=== PATIENT | male | born 1970 | race American Indian/Alaskan Native ===

== ENCOUNTER 2017-12-11 00:10 | Emergency (ER) | payer OTHER ==
[2017-12-11 00:34] VITALS: BP 142/80
--- NOTE | 2017-12-11 05:42 | Emergency Department Report ---
ED Lower Extremity HPI - General Chief Complaint: Extremity Injury, Lower Stated Complaint: RIGHT FOOT PAIN Time Seen by Provider: 12/11/17 05:37 Source: patient Mode of arrival: Ambulatory Limitations: No Limitations - History of Present Illness Initial Comments: This is a 47 y.o. male that presents with right great toe pain for 3 days. History of HTN & DM2. Patient newly diagnosed with gout last month and reports eating steak this past weekend and waking up with pain, swelling, and redness to right great toe. Reports pain as 10/10 on scale and constant. He can't tolerate sock or shoe rubbing against it. Pain is a throbbing and burning sensation. Denies recent injury, numbness/tingling, and deformity. MD Complaint: other (right great toe swollen and painful) -: days(s) (3 days) Injury: Toes: Right (1st digit) Type of Injury: unknown Place: home Severity: severe Severity scale (0 -10): 8 Improves With: nothing Worsens With: weight bearing, movement, palpation Context: other (history of gout) Associated Symptoms: swelling, able to partially bear weight, ambulatory. denies: snap/pop sensation, numbness, tingling, unable to bear weight Treatments Prior to Arrival: NSAIDS - Related Data Previous Rx's Medication Instructions Recorded Last Taken Type Cyclobenzaprine HCl [Flexeril 5 MG 5 mg PO TID #20 tab 04/15/16 Unknown Rx TAB] RX: Ibuprofen [Motrin 800 MG tab] 800 mg PO Q8HR PRN #30 tablet 04/15/16 Unknown Rx Prednisone [predniSONE 10 mg 10 mg PO .TAPER #1 tab.ds.pk 12/11/17 Unknown Rx (6-Day Pack, 21 Tabs)] RX: Indomethacin 50 mg PO Q8H PRN #20 capsule 12/11/17 Unknown Rx Allergies Allergy/AdvReac Type Severity Reaction Status Date / Time No Known Allergies Allergy Verified 12/11/17 01:18 ED Review of Systems ROS: Stated complaint: RIGHT FOOT PAIN Other details as noted in HPI Constitutional: denies: chills, fever Respiratory: denies: cough, shortness of breath, wheezing Cardiovascular: denies: chest pain, palpitations Gastrointestinal: denies: abdominal pain, nausea, diarrhea Musculoskeletal: joint swelling (right great toe), arthralgia (right great toe) . denies: back pain Skin: change in color (erythematous and swollen 1st digit). denies: rash, lesions, change in hair/nails Neurological: denies: headache, weakness, numbness, paresthesias Psychiatric: denies: anxiety, depression ED Past Medical Hx - Past Medical History Previous Medical History?: Yes Hx Hypertension: Yes Hx Diabetes: Yes (not on meds) Hx Arthritis: Yes (gout) - Surgical History Past Surgical History?: No - Social History Smoking Status: Never Smoker Substance Use Type: None - Medications Home Medications: Home Medications Medication Instructions Recorded Confirmed Last Taken Type Cyclobenzaprine HCl [Flexeril 5 MG 5 mg PO TID #20 tab 04/15/16 Unknown Rx TAB] RX: Ibuprofen [Motrin 800 MG tab] 800 mg PO Q8HR PRN #30 tablet 04/15/16 Unknown Rx Prednisone [predniSONE 10 mg 10 mg PO .TAPER #1 tab.ds.pk 12/11/17 Unknown Rx (6-Day Pack, 21 Tabs)] RX: Indomethacin 50 mg PO Q8H PRN #20 capsule 12/11/17 Unknown Rx ED Physical Exam - General Limitations: No Limitations General appearance: alert, in no apparent distress - Respiratory Respiratory exam: Present: normal lung sounds bilaterally. Absent: respiratory distress - Cardiovascular Cardiovascular Exam: Present: regular rate, normal rhythm, normal heart sounds. Absent: systolic murmur, diastolic murmur, rubs, gallop - GI/Abdominal GI/Abdominal exam: Present: soft, normal bowel sounds. Absent: organomegaly, mass - Extremities Exam Extremities exam: Present: normal inspection, normal capillary refill. Absent: pedal edema, calf tenderness - Expanded Lower Extremity Exam Right Hip exam: Present: normal inspection, full ROM Upper Leg exam: Present: normal inspection, full ROM Knee exam: Present: normal inspection, full ROM Lower Leg exam: Present: normal inspection, full ROM Ankle exam: Present: normal inspection, full ROM Foot/Toe exam: Present: tenderness (erythma, tender and swelling at distal MTP joint of 1st digit, shiny skin,), swelling, erythema. Absent: full ROM ( limited 2/2 pain), abrasion, laceration, ecchymosis, deformity, crepidus, dislocation, amputation, puncture wound, foreign body, calcaneal tenderness, tenderness at base of 5th metatarsal, nail avulsion, subungual hematoma Neuro vascular tendon exam: Present: no vascular compromise Gait: Positive: observed and limited by pain - Neurological Exam Neurological exam: Present: alert, oriented X3, abnormal gait (partial weight bearing to RLE) - Psychiatric Psychiatric exam: Present: normal affect, normal mood - Skin Skin exam: Present: warm, dry, intact, normal color. Absent: rash ED Course Vital Signs 12/11/17 12/11/17 00:19 01:15 Temperature 98.3 F 98.3 F Pulse Rate 63 61 Respiratory 18 18 Rate Blood Pressure 142/80 142/80 O2 Sat by Pulse 97 96 Oximetry ED Lower Extremity MDM - Medical Decision Making This patient is a 47 y.o. male that presents with painful, swollen right 1st digit. Hx of gout, DM2, & HTN. Patient is stable and examined by me. No labs or radiograph obtained. No acute signs of distress noted. Given prednisone 50 mg po once in ER for gout. Discussed plan to start prednisone taper and indomethacin 50 mg po tid with patient. Educated patient on low purine diet and given handout. Patient agrees to ED plan of care. Discharged home and follow up with PCP in 3 days. Critical care attestation.: If time is entered above; I have spent that time in minutes in the direct care of this critically ill patient, excluding procedure time. ED Disposition Clinical Impression: Gout attack Qualifiers: Gout site: toe Gout etiology: idiopathic Laterality: right Qualified Code(s): M10.071 - Idiopathic gout, right ankle and foot Disposition: - TO HOME OR SELFCARE Is pt being admited?: No Does the pt Need Aspirin: No Condition: Stable Instructions: Low Purine Diet (ED), Acute Gouty Arthritis (ED) Additional Instructions: Avoid foods that have a high purine content such as alcohol, organ meats, and seafood can cause higher risk of elevated uric acid and gout. Reduce intake of alcohol, especially beer, lowers the risk of gout. Reduce the intake of vegetables high in purines such as asparagus, spinach, and mushrooms. Dairy products reduce the risk of gout. Follow up with primary care provider in 2-3 days. Prescriptions: RX: Indomethacin 50 mg PO Q8H PRN #20 capsule PRN Reason: Pain Prednisone [predniSONE 10 mg (6-Day Pack, 21 Tabs)] 10 mg PO .TAPER #1 tab.ds.pk Referrals: ASIF MOSLEY MD [Staff Physician] - 3-5 Days [facility] [Provider Group] - 3-5 Days [facility] [Provider Group] - 3-5 Days [facility] [Provider Group] - 3-5 Days Forms: Work/School Release Form(ED) Time of Disposition: 05:54 Print Language: CROATIAN
[2017-12-11] MEDS ORDERED: DELTASONE PO ONE (05:50)
== END 2017-12-11 06:12 | disposition home or self-care (01) ==
LOC: ED 00:10
DX: M10.9 Gout, unspecified (principal); I10 Essential (primary) hypertension; E11.9 Type 2 diabetes mellitus without complications; M19.90 Unspecified osteoarthritis, unspecified site
CPT/HCPCS: 99282; J7512